=== PATIENT | male | born 1965 | race Caucasian/White ===

== ENCOUNTER → 2021-06-16 | Outpatient (CLI) | payer BC ==
[2021-06-16 15:34] LABS: HEMOGLOBIN 16.1 gm/dl (14.0-17.5); RED BLOOD COUNT 5.13 M/UL (4.20-5.50); WHITE BLOOD COUNT 7.7 K/UL (4.5-11.0)
[2021-06-16 17:40] LABS: BUN/CREATININE RATIO 21 (0-10)
[2021-06-17 07:11] LABS: VITAMIN D, 25-HYDROXY 28.2 ng/mL (30.0-100.0)
[2021-06-17 08:14] LABS: THYROXINE (T4) 7.1 ug/dL (4.5-12.0)
== END ==
LOC: LAB 14:47
PROVIDERS: Nurse Practitioner
DX: Z12.5 Encounter for screening for malignant neoplasm of prostate (principal); E11.9 Type 2 diabetes mellitus without complications; E78.5 Hyperlipidemia, unspecified; I10 Essential (primary) hypertension; E05.90 Thyrotoxicosis, unspecified without thyrotoxic crisis or storm; E03.9 Hypothyroidism, unspecified
CPT/HCPCS: 80053; 80061; 81001; 83036; 84153; 84436; 84443; 84480; 85025